=== PATIENT | female | born 1995 ===

== ENCOUNTER 2021-11-09 09:15 | Inpatient (IN) | payer SELFPAY ==
[2021-11-09] MEDS ORDERED: OXYTOCIN DRIP 30,000 MILLIUNITS/500 ML BAG IV ONE (10:38)
[2021-11-09] MEDS ORDERED: AMPICILLIN/NS 2 GM/100 ML 2 GM/100 ML BAG IV ONE ×2 (10:39→10:56)
[2021-11-09] MEDS ORDERED: fentaNYL 100 MCG/2 ML INJ IV PRN (10:56)
[2021-11-09] MEDS ORDERED: LIDOCAINE (2%) 20 MG/1 ML VIAL 20 ML MDV INFILTRATI ONE (10:56)
[2021-11-09] MEDS ORDERED: LOPERAMIDE 2 MG CAP PO PRN (10:56)
[2021-11-09] MEDS ORDERED: ePHEDrine SULFATE 50 MG/1 ML INJ IV PRN (10:56)
[2021-11-09] MEDS ORDERED: METHYLERGONOVINE MALEATE 0.2 MG/ML VIAL IM PRN (10:56)
[2021-11-09] MEDS ORDERED: NalbUPHINE 10 MG/1 ML INJ IV PRN (10:56)
[2021-11-09] MEDS ORDERED: ACETAMINOPHEN 325 MG TAB PO PRN ×2 (10:56→12:10)
[2021-11-09] MEDS ORDERED: TERBUTALINE 1 MG/1 ML INJ SUB-Q PRN (10:56)
[2021-11-09] MEDS ORDERED: CARBOPROST TROMETHAMINE 250 MCG/1 ML INJ IM PRN (10:56)
[2021-11-09] MEDS ORDERED: OXYTOCIN 10 UNIT/1 ML INJ IM PRN (10:56)
[2021-11-09] MEDS ORDERED: miSOPROStol 200 MCG TAB PR PRN (10:56)
[2021-11-09] MEDS ORDERED: MINERAL OIL 30 ML ORAL LIQD PO PRN (10:56)
[2021-11-09] MEDS ORDERED: LACTATED RINGERS 1,000 ML IV SCH (11:00)
[2021-11-09] MEDS ORDERED: OXYTOCIN DRIP 30 UNITS/500 ML BAG IV SCH ×2 (11:00)
[2021-11-09 11:45] LABS: Hematocrit 34.5 % (30.3-42.9); Hemoglobin 11.4 gm/dl (10.1-14.3); Mean Corpuscular HGB Conc 33 % (30-34); Mean Corpuscular Volume 87 fl (79-97); Platelet Count 257 K/mm3 (140-440); Red Blood Count 3.98 M/mm3 (3.65-5.03); Red Cell Distribution Width 14.1 % (13.2-15.2)
--- NOTE | 2021-11-09 12:01 | History and Physical Report ---
History of Present Illness Date of examination: 11/09/21 Date of admission: 11/09/21 11:09 Chief complaint: I'm in labor History of present illness: 26 YO presents in active labor. She had care at [facility]. She is GBS +. Past History Past Medical History: no pertinent history Past Surgical History: no surgical history Family/Genetic History: none Social history: no significant social history - Obstetrical History Expected Date of Delivery: 11/09/21 Actual Gestation: 40 Week(s) 0 Day(s) : 2 Para: 1 Number of Living Children: 1 Medications and Allergies Allergies Allergy/AdvReac Type Severity Reaction Status Date / Time No Known Allergies Allergy Unverified 11/09/21 10:56 Active Meds: Active Medications Acetaminophen (Acetaminophen 325 Mg Tab) 650 mg PO Q4H PRN PRN Reason: Pain, Mild (1-3) Carboprost Tromethamine (Carboprost Tromethamine 250 Mcg/1 Ml Inj) 250 mcg IM ONCE PRN PRN Reason: Uterine Bleeding Ephedrine Sulfate (Ephedrine Sulfate 50 Mg/1 Ml Inj) 10 mg IV Q2M PRN PRN Reason: Hypotension Fentanyl (Fentanyl 100 Mcg/2 Ml Inj) 100 mcg IV Q2H PRN PRN Reason: Pain,Severe (7-10) LABOR PAIN Oxytocin/Sodium Chloride (Pitocin/Ns 30 Unit/500ml) 30 units in 500 mls @ 2 mls/hr IV TITR CORINA; Protocol Lactated Ringer's (Lactated Ringers) 1,000 mls @ 125 mls/hr IV DIRECT [place] Oxytocin/Sodium Chloride (Pitocin/Ns 30 Unit/500ml) 30 units in 500 mls @ 40 mls/hr IV TITR [place]; Protocol Loperamide HCl (Loperamide 2 Mg Cap) 2 mg PO ONCE PRN PRN Reason: give with Hemabate Methylergonovine Maleate (Methylergonovine Maleate 0.2 Mg/Ml Vial) 0.2 mg IM ONCE PRN PRN Reason: Uterine Bleeding Mineral Oil (Mineral Oil 30 Ml Oral Liqd) 30 ml PO QHS PRN PRN Reason: Constipation Misoprostol (Misoprostol 200 Mcg Tab) 800 mcg RI ONCE PRN PRN Reason: Uterine Bleeding Nalbuphine HCl (Nalbuphine 10 Mg/1 Ml Inj) 10 mg IV Q2H PRN PRN Reason: Pain, Moderate (4-6) Oxytocin (Oxytocin 10 Unit/1 Ml Inj) 10 unit IM ONCE PRN PRN Reason: Uterine Bleeding Terbutaline Sulfate (Terbutaline 1 Mg/1 Ml Inj) 0.25 mg SUB-Q ONCE PRN PRN Reason: Hyperstimulation/Hypertonicity Review of Systems All systems: negative - Vital Signs Vital signs: Vital Signs Temp Pulse Resp BP Pulse Ox 99.6 F 105 H 18 131/75 99 11/09/21 09:49 11/09/21 09:49 11/09/21 09:49 11/09/21 09:49 11/09/21 09:49 Temp Pulse Resp BP Pulse Ox 99.6 F 80 18 152/73 89 11/09/21 09:49 11/09/21 11:52 11/09/21 09:49 11/09/21 11:43 11/09/21 11:52 - Physical Exam Breasts: Positive: deferred Cardiovascular: Regular rate Lungs: Positive: Clear to auscultation Genitourinary (Female): Positive: other (condyloma in introitus and on perineum) Vagina: Positive: normal moisture Uterus: Positive: enlarged Deep Tendon Reflex Grade: Normal +2 - Obstetrical FHR: category 1 Uterine Contraction Monitor Mode: External Cervical Dilatation: 9 Cervical Effacement Percentage: 100 station: 0 Uterine Contraction Pattern: Regular Uterine Contraction Intensity: Moderate Results Result Diagrams: 11/09/21 10:30 Abnormal lab results 11/09/21 Range/Units 10:30 WBC 13.0 H (4.5-11.0) K/mm3 All other labs normal. Assessment and Plan A: Active labor @ 40+ weeks, GBS + P: Expect
--- NOTE | 2021-11-09 12:08 | Procedure Note ---
OB Delivery Note - Delivery Date of Delivery: 11/09/21 Surgeon: GLORIA CARY Estimated blood loss: 200cc - Vaginal Delivery position: OA Intrapartum events: none Delivery induction: none Delivery augmentation: rupture of membranes Delivery monitor: external FHT, external uterine Route of delivery: Delivery placenta: spontaneous Delivery cord: nuchal cord Delivery laceration: 1st degree Delivery repair: vicryl Anesthesia: local Delivery comments: of a viable male 7# 7oz on 11/09/2021 @ 1117 over 1st degree perineal laceration. Nuchal cord x 1 reduced. Placenta delivered 3VCI. Laceration repaired with 2-0 vicryl under local anesthesia. QBL 200 cc. Mother and baby doing well - Infant A at 1 minute: 8 at 5 minutes: 9 Gender: Male (7# 7oz)
[2021-11-09] MEDS ORDERED: ONDANSETRON 4 MG/2 ML INJ IV PRN (12:10)
[2021-11-09] MEDS ORDERED: LANOLIN/ZINC/DIMETHICONE (LANSINOH) 7 GM TP PRN (12:10)
[2021-11-09] MEDS ORDERED: MAGNESIUM HYDROXIDE (MOM) ORAL LIQD UDC PO PRN (12:10)
[2021-11-09] MEDS ORDERED: oxyCODONE /ACETAMINOPHEN 5-325MG TAB PO PRN (12:10)
[2021-11-09] MEDS ORDERED: diphenhydrAMINE 25 MG CAP PO PRN (12:10)
[2021-11-09] MEDS ORDERED: WITCH HAZEL/ GLYCERIN PAD TP PRN (12:10)
[2021-11-09] MEDS: IBUPROFEN 800 MG TAB PO SCH ×2 (13:35→23:27)
[2021-11-10 02:33] LABS: Hematocrit 30.2 % (30.3-42.9)
[2021-11-10] MEDS: IBUPROFEN 800 MG TAB PO SCH ×4 (04:41→23:46)
--- NOTE | 2021-11-10 11:04 | Progress Note ---
Assessment and Plan A: PP Day #1 Stable P: Follow Routine Orders Depo Provera 150mg IM x 1 dose prior to discharge D/C Home today per patient request RTO in 6 Weeks Subjective - Subjective Date of service: 11/10/21 Patient reports: appetite normal, voiding normally, pain well controlled, flatus, bowel movement, ambulating normally [place]: doing well, bottle feeding (and ) Objective - Vital Signs Latest vital signs: Vital Signs Temp Pulse Resp BP BP Pulse Ox Pulse Ox 11/10/21 08:30 98.3 F 68 20 90/50 100 11/09/21 23:56 98.2 F 75 20 101/59 99 11/09/21 21:00 98.4 F 81 18 98/50 98 98 11/09/21 15:51 98.1 F 16 11/09/21 15:44 11/09/21 15:29 73 107/56 11/09/21 13:10 82 97 11/09/21 13:05 76 95 11/09/21 13:03 66 94 11/09/21 13:00 85 99 11/09/21 12:55 83 93 11/09/21 12:52 86 114/58 11/09/21 12:50 85 97 11/09/21 12:49 83 94 11/09/21 12:45 80 97 11/09/21 12:40 79 97 11/09/21 12:37 74 115/66 11/09/21 12:35 85 96 11/09/21 12:33 70 94 11/09/21 12:30 72 96 11/09/21 12:25 70 95 11/09/21 12:23 77 115/54 11/09/21 12:22 82 92 11/09/21 12:20 84 96 11/09/21 12:15 75 98 11/09/21 12:10 76 98 11/09/21 12:07 71 125/55 87 11/09/21 12:05 81 99 11/09/21 12:00 77 99 11/09/21 11:55 75 97 11/09/21 11:52 80 89 11/09/21 11:50 86 95 11/09/21 11:45 82 98 11/09/21 11:43 97 H 152/73 93 11/09/21 11:40 74 98 11/09/21 11:35 78 96 11/09/21 11:30 80 97 11/09/21 11:26 79 112/53 85 11/09/21 11:25 60 95 11/09/21 11:20 84 96 11/09/21 11:17 90 90 11/09/21 11:15 86 96 11/09/21 11:10 84 97 11/09/21 11:05 82 97 11/09/21 11:03 85 90 Pulse Ox 11/10/21 08:30 11/09/21 23:56 11/09/21 21:00 98 11/09/21 15:51 11/09/21 15:44 98 11/09/21 15:29 11/09/21 13:10 11/09/21 13:05 11/09/21 13:03 11/09/21 13:00 11/09/21 12:55 11/09/21 12:52 11/09/21 12:50 11/09/21 12:49 11/09/21 12:45 11/09/21 12:40 11/09/21 12:37 11/09/21 12:35 11/09/21 12:33 11/09/21 12:30 11/09/21 12:25 11/09/21 12:23 11/09/21 12:22 11/09/21 12:20 11/09/21 12:15 11/09/21 12:10 11/09/21 12:07 11/09/21 12:05 11/09/21 12:00 11/09/21 11:55 11/09/21 11:52 11/09/21 11:50 11/09/21 11:45 11/09/21 11:43 11/09/21 11:40 11/09/21 11:35 11/09/21 11:30 11/09/21 11:26 11/09/21 11:25 11/09/21 11:20 11/09/21 11:17 11/09/21 11:15 11/09/21 11:10 11/09/21 11:05 11/09/21 11:03 Intake and Output 11/09/21 11/10/21 11/10/21 22:59 06:59 14:59 Intake Total 240 480 360 Output Total 300 900 600 Balance -60 -420 -240 Intake: Oral 240 240 360 Intake, Free Water 240 Output: Urine 300 900 600 Void 300 900 600 Other: Total, Intake Amount 240 240 360 Total, Output Amount 300 300 600 # Voids Void 2 - Exam Breasts: Present: normal Cardiovascular: Present: Regular rate Lungs: Present: Clear to auscultation, Normal air movement Abdomen: Present: normal appearance, soft, normal bowel sounds Uterus: Present: normal, firm, fundal height below umbilicus Extremities: Present: normal - Labs Labs: Abnormal lab results 11/09/21 11/10/21 Range/Units 10:30 01:51 WBC 13.0 H (4.5-11.0) K/mm3 Hgb 10.0 L (10.1-14.3) gm/dl Hct 30.2 L (30.3-42.9) %
--- NOTE | 2021-11-10 11:06 | Discharge Summary ---
Providers - Providers Date of Admission: 11/09/21 11:09 Date of discharge: 11/10/21 Attending physician: BROOKE STANFORD Primary care physician: CANE FEEDER Hospitalization Reason for admission: active labor Delivery: Episiotomy: none Laceration: 1st degree Other procedures: none complications: none Discharge diagnosis: IUP at term delivered [place] baby: male Condition at discharge: Good Disposition: 01 HOME / SELF CARE / HOMELESS Plan - Provider Discharge Summary Activity: routine, no sex for 6 weeks, no heavy lifting 4 weeks, no strenuous exercise Diet: routine Instructions: routine Additional instructions: [] Smoking cessation referral if applicable(refer to patient education folder for contact #) [] Refer to [facility]'s [facility] Booklet Call your doctor immediately for: * Fever > 100.5 * Heavy vaginal bleeding ( >1 pad per hour) * Severe persistent headache * Shortness of breath * Reddened, hot, painful area to leg or breast * Drainage or odor from incision. * Keep incision clean and dry at all times and follow doctor's instructions regarding bathing/showering - Follow up plan Follow up: BROOKE STANFORD MD [Staff Physician] - 6 Weeks
[2021-11-10] MEDS ORDERED: medroxyPROGESTERone ACETATE 150 MG/ML SYRINGE IM SCH (11:30)
[2021-11-10] MEDS ORDERED: medroxyPROGESTERone ACETATE 150 MG/ML SYRINGE IM ONE (18:10)
[2021-11-11] MEDS: IBUPROFEN 800 MG TAB PO SCH (05:30)
[2021-11-11 12:33] VITALS: BP 109/61
== END 2021-11-11 12:00 | disposition home or self-care (01) | DRG 807 ==
LOC: APU 09:15 → TRG 09:15 → LD 11:09 → OB 20:53
PROVIDERS: ADMIT Obstetrics & Gynecology; ATTEND Obstetrics & Gynecology
PROC: 10E0XZZ Delivery of Products of Conception, External Approach (ICD-10-PCS; principal; 2021-11-09)
PROC: 0HQ9XZZ Repair Perineum Skin, External Approach (ICD-10-PCS; 2021-11-09)
DX: O69.81X0 Labor and delivery complicated by cord around neck, without compression, not applicable or unspecified (principal); Z37.0 Single live birth; O99.824 Streptococcus B carrier state complicating childbirth; O70.0 First degree perineal laceration during delivery; Z3A.40 40 weeks gestation of pregnancy; Z20.822 Contact with and (suspected) exposure to COVID-19
CPT/HCPCS: 36415; 85014; 85018; 85027; 86592; 86850; 86900; 86901; G0378; J0290; U0003